=== PATIENT | male | born 1965 | race Caucasian/White ===

== ENCOUNTER 2024-12-06 21:01 | Inpatient (IN) | payer BC ==
--- NOTE | 2024-12-06 21:49 | ED ---
SOB HPI - General Chief Complaint: Shortness of Breath Stated Complaint: CANDELARIA Time Seen by Provider: 12/06/24 21:44 Source: patient, RN notes reviewed, old records reviewed Mode of arrival: ambulatory Limitations: no limitations - History of Present Illness Initial Comments: This is a 58-year-old male to ER for evaluation mainly complaining of shortness of breath severe shortness of breath with low oxygen's at home elevated heart rate in the 120s+ oxygen in the low to mid 80s. Patient does have history of smoking no formal breathing treatments done but he does also have COPD. No significant heart history with bilateral lower extremity edema also noticed today. Patient has not had any fever or recent illness MD Complaint: shortness of breath, chest pain -: hour(s) Severity: severe Severity scale (1-10): 10 Consistency: constant Improves With: nothing Worsens With: exertion Known History Of: COPD, congestive heart failure Associated Symptoms: chest pain, pain with inspiration Treatments Prior to Arrival: none - Related Data Home Medications Medication Instructions Recorded Confirmed Atorvastatin [Lipitor] 10 mg PO DAILY 12/07/24 12/07/24 Fluticasone/Umeclidin/Vilanter 1 puff INHALATION RT-DAILY 12/07/24 12/07/24 [Trelejess Ellipta 100-62.5-25] Naltrexone HCl 50 mg PO DIRECTED 12/07/24 12/07/24 Tirzepatide [Mounjaro] 7.5 mg SQ TU 12/07/24 12/07/24 hydroCHLOROthiazide [Hydrodiuril] 25 mg PO DAILY 12/07/24 12/07/24 lisinopriL 40 mg PO DAILY 12/07/24 12/07/24 metFORMIN HCL 1,000 mg PO BID 12/07/24 12/07/24 ALPRAZolam [Xanax] 1 mg PO TID PRN 12/08/24 12/08/24 Previous Rx's Medication Instructions Recorded Ipratropium-Albuterol Nebulize 3 ml INHALATION Q6HR PRN #90 ml 12/09/24 [Duoneb 0.5 mg-3 mg/3 ml Soln] Pantoprazole [Protonix] 40 mg PO AC-BID #30 tab 12/09/24 predniSONE See Taper PO DIRECTED #30 tab 12/09/24 Allergies Allergy/AdvReac Type Severity Reaction Status Date / Time No Known Allergies Allergy Verified 12/07/24 07:57 Review of Systems ROS Statement: Those systems with pertinent positive or pertinent negative responses have been documented in the HPI. ROS Other: All systems not noted in ROS Statement are negative. Past Medical History Past Medical History: COPD, Diabetes Mellitus, Hyperlipidemia History of Any Multi-Drug Resistant Organisms: None Reported Past Surgical History: No Surgical Hx Reported Past Psychological History: No Psychological Hx Reported Smoking Status: Current every day smoker Past Alcohol Use History: Heavy General Exam Limitations: no limitations General appearance: alert, in no apparent distress Head exam: Present: atraumatic, normocephalic, normal inspection Eye exam: Present: normal appearance, PERRL, EOMI. Absent: scleral icterus, conjunctival injection, periorbital swelling ENT exam: Present: normal exam, mucous membranes moist Neck exam: Present: normal inspection. Absent: tenderness, meningismus, lymphadenopathy Respiratory exam: Present: normal lung sounds bilaterally. Absent: respiratory distress, wheezes, rales, rhonchi, stridor Cardiovascular Exam: Present: normal rhythm, tachycardia, normal heart sounds. Absent: systolic murmur, diastolic murmur, rubs, gallop, clicks GI/Abdominal exam: Present: soft, normal bowel sounds. Absent: distended, tenderness, guarding, rebound, rigid Extremities exam: Present: normal inspection, full ROM, normal capillary refill. Absent: tenderness, pedal edema, joint swelling, calf tenderness Back exam: Present: normal inspection Neurological exam: Present: alert, oriented X3, CN II-XII intact Psychiatric exam: Present: normal affect, normal mood Skin exam: Present: warm, dry, intact, normal color. Absent: rash Course Vital Signs 12/06/24 12/06/24 12/06/24 21:02 22:01 22:27 Temperature 97.6 F Pulse Rate 129 H 117 H 120 H Respiratory 18 18 Rate Blood Pressure 123/69 108/63 O2 Sat by Pulse 93 L 96 Oximetry 12/06/24 12/06/24 12/07/24 22:37 23:44 00:35 Temperature 98.3 F 98.2 F Pulse Rate 120 H 122 H 115 H Respiratory 18 18 Rate Blood Pressure 117/60 115/75 O2 Sat by Pulse 92 L 95 Oximetry 07/16/25 07/16/25 07/16/25 02:00 03:26 03:35 Temperature Pulse Rate 116 H 117 H 118 H Respiratory 18 Rate Blood Pressure 126/87 O2 Sat by Pulse 94 L Oximetry - Reevaluation(s) Reevaluation #1: 12/06/24 22:15 Medical records reviewed Reevaluation #2: 12/07/24 02:33 Mild improvement after breathing treatment still hypoxic without room air Reevaluation #3: 12/07/24 02:33 Patient informed of results and questions answered Reevaluation #4: Was pt. sent in by a medical professional or institution ([facility] Leyva, CREDIT COLLECTIONS CLERK, urgent care, hospital, or shelter...) When possible be specific @ -no Did you speak to anyone other than the patient for history (EMS, parent, family, police, friend...)? What history was obtained from this source @ -no Did you review nursing and triage notes (agree or disagree)? Why? @ -agree Are old charts reviewed (outside hosp., previous admission, EMS record, old EKG, old radiological studies, urgent care reports/EKG's, shelter records)? Report findings @ -yes Differential Diagnosis (chest pain, altered mental status, abdominal pain women, abdominal pain men, vaginal bleeding, weakness, fever, dyspnea, syncope, headache, dizziness, GI bleed, back pain, seizure, CVA, palpatations, mental health, musculoskeletal)? @ -prior EKG interpreted by me (3pts min.). @ -yes X-rays interpreted by me (1pt min.). @ -yes negative for acute disease CT interpreted by me (1pt min.). @ -yes negative for acute disease U/S interpreted by me (1pt. min.). @ -no What testing was considered but not performed or refused? (CT, X-rays, U/S, labs )? Why? @ -none What meds were considered but not given or refused? Why? @ -none Did you discuss the management of the patient with other professionals (professionals i.e. [facility] Leyva, CREDIT COLLECTIONS CLERK, lab, RT, psych nurse, social services coordinator, hull line crew member, teacher, marketing and communications officer, case monitor)? Give summary @ -no Was smoking cessation discussed for >3mins.? @ -no Was critical care preformed (if so, how long)? @ -yes31 Were there social determinants of health that impacted care today? How? (Homelessness, low income, unemployed, alcoholism, drug addiction, transportation, low edu. Level, literacy, decrease access to med. care, long term, rehab)? @ -none Was there de-escalation of care discussed even if they declined (Discuss DNR or withdrawal of care, Hospice)? DNR status @ -no What co-morbidities impacted this encounter? (DM, HTN, Smoking, COPD, CAD, Cancer, CVA, ARF, Chemo, Hep., AIDS, mental health diagnosis, sleep apnea, morbid obesity)? @ -none Was patient admitted / discharged? Hospital course, mention meds given and route, prescriptions, significant lab abnormalities, going to OR and other pertinent info. @ - 58 male with severe COPD and hypoxia patient will be admitted for breathing treatments and steroid Admitted Undiagnosed new problem with uncertain prognosis? @ -no Drug Therapy requiring intensive monitoring for toxicity (Heparin, Nitro, Insulin, Cardizem)? @ -no Were any procedures done? @ -no Diagnosis/symptom? @ -COPD with hypoxia Acute, or Chronic, or Acute on Chronic? @ -Acute Uncomplicated (without systemic symptoms) or Complicated (systemic symptoms)? @ -Complicated Side effects of treatment? @ -no Exacerbation, Progression, or Severe Exacerbation? @ -exacerbation Poses a threat to life or bodily function? How? (Chest pain, USA, NM, pneumonia, PE, COPD, DKA, ARF, appy, cholecystitis, CVA, Diverticulitis, Homicidal, Suicidal, threat to staff... and all critical care pts) @ -yes respiratory failure Reevaluation #5: Differential Dyspnea: Coronary syndrome, arrhythmia, tamponade, asthma, COPD, pulmonary embolism, pneumonia, pneumothorax, pulmonary effusion, anaphylaxis, diabetic ketoacidosis, flailed chest, pulmonary contusion, diaphragmatic rupture, anemia, neuromuscular, this is not meant to be an all-inclusive list. Differential Chest Pain: Stable Angina, Unstable Angina, STEMI, NSTEMI Aortic Dissection, Pneumothorax, Musculoskeletal, Esophageal Spasm GERD, Cholecystitis, Pancreatitis, Zoster, this is not meant to be an all-inclusive list. - Consultations Consultation #1: Spoke with Dr. Melchor who agrees to admit this patient Medical Decision Making - Medical Decision Making 58 male with severe COPD and hypoxia patient will be admitted for breathing treatments and steroid - Lab Data Result diagrams: 12/08/24 05:53 12/08/24 05:53 Lab Results 12/06/24 12/06/24 12/06/24 Range/Units 21:52 21:52 21:52 WBC 10.88 H (4.50-10.00) 10*3/uL RBC 5.00 (4.40-5.60) 10*6/uL Hgb 17.6 H (13.0-17.0) g/dL Hct 49.8 (39.6-50.0) % MCV 99.6 H (80.0-97.0) fL MCH 35.2 H (27.0-32.0) pg MCHC 35.3 (32.0-37.0) g/dL Plt Count 202 (140-440) 10*3/uL MPV 10.7 (9.5-12.2) fL Immature Gran % (Auto) 0.4 % Neutrophils % 67.5 % Lymphocytes % 17.6 % Monocytes % 9.7 % Eosinophils % 3.8 % Basophils % 1.0 % Immature Gran # 0.04 (0.00-0.04) 10*3/uL Neutrophils # 7.36 (1.80-7.70) 10*3/uL Lymphocytes # 1.91 (0.90-5.00) 10*3/uL Monocytes # 1.05 H (0.20-1.00) 10*3/uL Eosinophils # 0.41 H (0.04-0.35) 10*3/uL Basophils # 0.11 H (0.00-0.10) 10*3/uL PT 12.6 H (10.0-12.5) sec INR 1.2 H (<1.2) APTT 23.1 (22.0-30.0) sec D-Dimer (<0.60) mg/L FEU Sodium 133 L (137-145) mmol/L Potassium 4.2 (3.5-5.1) mmol/L Chloride 94 L (98-107) mmol/L Carbon Dioxide 29 (22-30) mmol/L Anion Gap 10 mmol/L BUN 9 (9-20) mg/dL Creatinine 0.70 (0.66-1.25) mg/dL Est GFR (CKD-EPI)AfAm >90 (>60 ml/min/1.73 sqM) Est GFR (CKD-EPI)NonAf >90 (>60 ml/min/1.73 sqM) Glucose 140 H (74-99) mg/dL Calcium 10.9 H (8.4-10.2) mg/dL Magnesium 1.5 L (1.6-2.3) mg/dL Total Bilirubin 0.8 (0.2-1.3) mg/dL AST 62 H (17-59) U/L ALT 63 H (4-49) U/L Alkaline Phosphatase 72 (38-126) U/L Troponin I (0.000-0.034) ng/mL NT-Pro-B Natriuret Pep <20 pg/mL Total Protein 6.7 (6.3-8.2) g/dL Albumin 3.7 (3.5-5.0) g/dL 12/06/24 12/07/24 Range/Units 21:52 00:01 WBC (4.50-10.00) 10*3/uL RBC (4.40-5.60) 10*6/uL Hgb (13.0-17.0) g/dL Hct (39.6-50.0) % MCV (80.0-97.0) fL MCH (27.0-32.0) pg MCHC (32.0-37.0) g/dL Plt Count (140-440) 10*3/uL MPV (9.5-12.2) fL Immature Gran % (Auto) % Neutrophils % % Lymphocytes % % Monocytes % % Eosinophils % % Basophils % % Immature Gran # (0.00-0.04) 10*3/uL Neutrophils # (1.80-7.70) 10*3/uL Lymphocytes # (0.90-5.00) 10*3/uL Monocytes # (0.20-1.00) 10*3/uL Eosinophils # (0.04-0.35) 10*3/uL Basophils # (0.00-0.10) 10*3/uL PT (10.0-12.5) sec INR (<1.2) APTT (22.0-30.0) sec D-Dimer 0.30 (<0.60) mg/L FEU Sodium (137-145) mmol/L Potassium (3.5-5.1) mmol/L Chloride (98-107) mmol/L Carbon Dioxide (22-30) mmol/L Anion Gap mmol/L BUN (9-20) mg/dL Creatinine (0.66-1.25) mg/dL Est GFR (CKD-EPI)AfAm (>60 ml/min/1.73 sqM) Est GFR (CKD-EPI)NonAf (>60 ml/min/1.73 sqM) Glucose (74-99) mg/dL Calcium (8.4-10.2) mg/dL Magnesium (1.6-2.3) mg/dL Total Bilirubin (0.2-1.3) mg/dL AST (17-59) U/L ALT (4-49) U/L Alkaline Phosphatase (38-126) U/L Troponin I <0.012 (0.000-0.034) ng/mL NT-Pro-B Natriuret Pep pg/mL Total Protein (6.3-8.2) g/dL Albumin (3.5-5.0) g/dL - EKG Data -: EKG Interpreted by Me (EKG sinus tachycardia 127 [place] 160 QRS 88 QTc 395) - Radiology Data Radiology results: report reviewed (Chest x-ray CTA chest negative for acute d isease), image reviewed Critical Care Time Critical Care Time: Yes Total Critical Care Time: 31 Disposition Clinical Impression: Acute exacerbation of chronic obstructive pulmonary disease, Hypoxia Disposition: ADMITTED IP TO THIS HOSP Condition: Fair Is patient prescribed a controlled substance at d/c from ED?: No Time of Disposition: 01:00
[2024-12-06] MEDS: methylPREDNISolone SOD SUCCI 125 MG/2 ML VIAL IV STA (21:58)
[2024-12-06] MEDS: SODIUM CHLORIDE 0.9% 1,000 ML IV SCH (22:00)
[2024-12-06 22:03] LABS: Basophils # (A) 0.11 10*3/uL (0.00-0.10); Basophils % (A) 1.0 %; Eosinophils # (A) 0.41 10*3/uL (0.04-0.35); Eosinophils % (A) 3.8 %; HCT 49.8 % (39.6-50.0); HGB 17.6 g/dL (13.0-17.0); Lymphocytes # (A) 1.91 10*3/uL (0.90-5.00); Lymphocytes % (A) 17.6 %; MCH 35.2 pg (27.0-32.0); MCHC 35.3 g/dL (32.0-37.0); MCV 99.6 fL (80.0-97.0); Monocytes # (A) 1.05 10*3/uL (0.20-1.00); Monocytes % (A) 9.7 %; Neutrophils # (A) 7.36 10*3/uL (1.80-7.70); Neutrophils % (A) 67.5 %; Platelet Count 202 10*3/uL (140-440); RBC 5.00 10*6/uL (4.40-5.60); RDW 13.2 % (11.5-14.5); WBC 10.88 10*3/uL (4.50-10.00)
[2024-12-06 22:16] LABS: ALT 63 U/L (4-49); AST 62 U/L (17-59); African American GFR (CKD) >90 (>60 ml/min/1.73 sqM); Albumin 3.7 g/dL (3.5-5.0); Alkaline Phosphatase 72 U/L (38-126); Anion Gap 10 mmol/L; Blood Urea Nitrogen 9 mg/dL (9-20); Calcium 10.9 mg/dL (8.4-10.2); Carbon Dioxide 29 mmol/L (22-30); Chloride 94 mmol/L (98-107); Glucose 140 mg/dL (74-99); INR 1.2 (<1.2); Magnesium 1.5 mg/dL (1.6-2.3); Non-African American GFR(CKD) >90 (>60 ml/min/1.73 sqM); Partial Thromboplastin Time 23.1 sec (22.0-30.0); Potassium 4.2 mmol/L (3.5-5.1); Prothrombin Time 12.6 sec (10.0-12.5); Sodium 133 mmol/L (137-145); Total Protein 6.7 g/dL (6.3-8.2)
[2024-12-06] MEDS: IPRATROPIUM-ALBUTEROL 3 ML NEB INHALATION STA (22:24)
[2024-12-06 22:25] LABS: NT-Pro-B-Type Natriuretic Pept <20 pg/mL
[2024-12-06] MEDS: ONDANSETRON 4 MG/2 ML VIAL IVP STA (23:07)
--- NOTE | 2024-12-06 23:43 | XR ---
EXAM: XR Chest, 2 Views CLINICAL HISTORY: ITS.REASON XR Reason: difficulty breathing TECHNIQUE: Frontal and lateral views of the chest. COMPARISON: No relevant prior studies available. FINDINGS: Lungs: No consolidation. No overt edema. Pleural space: No pleural effusion. No pneumothorax. Heart: Unremarkable. No cardiomegaly. Bones/joints: Unremarkable. No fracture or malalignment. IMPRESSION: No acute cardiopulmonary abnormality.
[2024-12-07] MEDS: MAGNESIUM SULFATE-D5W PMX 1 GM in DEXTROSE/WATER 1 100ML.BAG IVPB SCH (00:37)
[2024-12-07] MEDS: MAGNESIUM OXIDE 400 MG TAB PO STA (00:40)
[2024-12-07] MEDS: MAGNESIUM OXIDE 400 MG TAB PO SCH (00:41)
--- NOTE | 2024-12-07 01:44 | CT ---
EXAM: CT Angiography Chest With Intravenous Contrast CLINICAL HISTORY: ITS.REASON CT Reason: pe TECHNIQUE: Axial computed tomographic angiography images of the chest with intravenous contrast. CTDI is 39.5 mGy and DLP is 544.6 mGy-cm. This CT exam was performed using one or more of the following dose reduction techniques: automated exposure control, adjustment of the mA and/or kV according to patient size, and/or use of iterative reconstruction technique. MIP reconstructed images were created and reviewed. COMPARISON: No relevant prior studies available. FINDINGS: Pulmonary arteries: Evaluation is limited due to suboptimal contrast bolus timing. Consider repeat exam, if clinically indicated. Aorta: No acute findings. No thoracic aortic aneurysm. Lungs: Unremarkable. No mass. No consolidation. Pleural space: Unremarkable. No significant effusion. No pneumothorax. Heart: Unremarkable. No cardiomegaly. No significant pericardial effusion. No evidence of RV dysfunction. Mediastinum: Moderate esophageal hiatal hernia. Bones/joints: No acute fracture. No dislocation. Soft tissues: Unremarkable. Lymph nodes: Unremarkable. No enlarged lymph nodes. Gallbladder and bile ducts: Cholelithiasis. IMPRESSION: Evaluation is limited due to suboptimal contrast bolus timing. Consider repeat exam, if clinically indicated. Impression.
[2024-12-07] MEDS ORDERED: MORPHINE SULFATE 4 MG/ML SYRINGE IV PRN (02:30)
[2024-12-07] MEDS ORDERED: NALOXONE 0.4 MG/ML 1 ML VIAL IV PRN (02:30)
[2024-12-07] MEDS: SODIUM CHLORIDE 0.9% 1,000 ML IV SCH (02:39)
[2024-12-07] MEDS: IPRATROPIUM-ALBUTEROL 3 ML NEB INHALATION STA (03:25)
--- NOTE | 2024-12-07 05:26 | P.CNPUL ---
History of Present Illness Consult date: 12/07/24 Requesting physician: David Bell Reason for consult: COPD Chief complaint: Shortness of breath History of present illness: Patient is a 58-year-old male with past medical history significant for diabetes, hypertension, hyperlipidemia, COPD, current ongoing tobacco day smoker, and heavy alcohol use. Presented emergency department late last night with severe shortness of breath, hypoxic on room air with SpO2 in the mid 80s, and tachycardic. Chest CT angiogram was nondiagnostic for pulmonary embolism due to poor bolus contrast timing. No acute parenchymal disease noted. Hyperinf lation consistent with COPD. CBC with a WBC count of 10.9, hemoglobin 17.6, platelets 202. CMP unremarkable, electrolytes WDL, creatinine 0.7, glucose 140. LFTs unremarkable. Troponin less than 0.012. NT proBNP less than 20. D-dimer 0.3, and there is no need to repeat chest CTA. Patient was given multiple DuoNeb treatments in the ED and loaded with IV Solu-Medrol. Currently, being evaluated in the emergency department. He is on 2 L/min nasal cannula. Does not appear to be any respiratory distress. States his shortness of breath started yesterday. Endorses coughing, but not significantly worse than normal. No sputum production. No hemoptysis. No sick contacts. No fevers or chills. Denies nausea, vomiting, diarrhea. No recent travel. He does smoke 2 packs/day. He also used to drink heavily, 1/5/day since but stopped approximately 1 month ago. He has history of COPD. Previously, followed with an out-of-town lead consultant. Uses a Trelegy inhaler. No chest pain, heart palpitations, lightheadedness, syncopal events, lower extremity edema. Normal saline infusing at 75 mL/h. Most recent vital signs temperature 98.2 F, heart rate 115 bpm, blood pressure 115/75 mmHg, nontachypneic, SpO2 recorded at 95% on 2 L/min nasal cannula. Review of Systems REVIEW OF SYSTEMS: CONSTITUTIONAL: Denies any recent significant weight loss or weight gain. EYES: Denies change in vision. EARS, NOSE, MOUTH, THROAT: Denies headaches, denies sore throat. CARDIOVASCULAR: Denies chest pain, palpitations or syncopal episodes. RESPIRATORY: See HPI GASTROINTESTINAL: Denies change in appetite, abdominal pain, nausea and vomiting, or diarrhea GENITOURINARY: Denies hematuria, denies infections. MUSKULOSKELETAL: Denies pain, denies swelling. INTEGUMENTARY: Denies rash, denies eczema. NEUROLOGICAL: Denies recent memory loss, no recent seizure activity. PSYCHIATRIC: Denies anxiety, denies depression. HEMATOLOGIC/LYMPHATIC: Denies anemia, denies enlarged lymph node Past Medical History Past Medical History: COPD, Diabetes Mellitus, Hyperlipidemia History of Any Multi-Drug Resistant Organisms: None Reported Past Surgical History: No Surgical Hx Reported Past Psychological History: No Psychological Hx Reported Smoking Status: Current every day smoker Past Alcohol Use History: Heavy Medications and Allergies Allergies Allergy/AdvReac Type Severity Reaction Status Date / Time No Known Allergies Allergy Verified 12/07/24 07:57 Physical Exam Vitals: Vital Signs Temp Pulse Resp BP Pulse Ox 12/07/24 03:35 118 H 12/07/24 03:26 117 H 12/07/24 02:00 116 H 18 126/87 94 L 12/07/24 00:35 98.2 F 115 H 18 115/75 95 12/06/24 23:44 98.3 F 122 H 18 117/60 92 L 12/06/24 22:37 120 H 12/06/24 22:27 120 H 12/06/24 22:01 117 H 18 108/63 96 12/06/24 21:02 97.6 F 129 H 18 123/69 93 L Intake and Output 12/06/24 12/06/24 12/07/24 14:59 22:59 06:59 Other: Weight 113.398 kg GENERAL EXAM: Alert, 58-year-old obese male, sitting at the edge of the bed, comfortable in no apparent distress. HEAD: Normocephalic and atraumatic EYES: Normal reaction of pupils, equal size. NOSE: Clear with pink turbinates. THROAT: No erythema or exudates. NECK: No masses, no JVD. CHEST: No chest wall deformity. LUNGS: Equal air entry with no crackles, wheeze, rhonchi or dullness. On 2 L/min nasal cannula. No conversational dyspnea or accessory muscle use.. CVS: S1 and S2 normal with no audible murmur, regular rhythm. No extra heart sounds. Tachycardic. ABDOMEN: No hepatosplenomegaly, active bowel sounds, no guarding or rigidity. SPINE: No scoliosis or deformity SKIN: No rashes CENTRAL NERVOUS SYSTEM: No focal deficits, tone is normal in all 4 extremities. EXTREMITIES: There is no peripheral edema, clubbing, or cyanosis. Peripheral pulses are intact. Results - Laboratory Findings CBC and BMP: 12/06/24 21:52 12/06/24 21:52 PT/INR, D-dimer PT 12.6 sec (10.0-12.5) H 12/06/24 21:52 INR 1.2 (<1.2) H 12/06/24 21:52 D-Dimer 0.30 mg/L FEU (<0.60) 12/07/24 00:01 Abnormal lab findings: Abnormal Labs 12/06/24 12/06/24 12/06/24 21:52 21:52 21:52 WBC 10.88 H Hgb 17.6 H MCV 99.6 H MCH 35.2 H Monocytes # 1.05 H Eosinophils # 0.41 H Basophils # 0.11 H PT 12.6 H INR 1.2 H Sodium 133 L Chloride 94 L Glucose 140 H Calcium 10.9 H Magnesium 1.5 L AST 62 H ALT 63 H - Diagnostic Findings Chest x-ray: image reviewed Assessment and Plan Assessment: Acute COPD exacerbation Acute hypoxemic respiratory failure, on 2 L/min nasal cannula, secondary to above Sinus tachycardia Hypertension History of hyperlipidemia Diabetes mellitus, on Mounjaro Obesity, with a BMI of 32.1 kg/m Current ongoing tobacco dependence, 2 pack/day smoker for over 40 year History of alcohol abuse, 1/5/day of liquor, stopped drinking approximately 1 month ago Plan: Medications, labs, imaging reviewed Chest CT angiogram nondiagnostic for pulmonary embolism D-dimer 0.3, no need to repeat study No acute parenchymal process noted. Continue supplemental oxygen to maintain oxygen saturation 92% or greater Continue DuoNebs Continue IV Solu-Medrol 60 mg every 6 hours Add Symbicort inhaler Anticipate 24-48-hour hospitalization I have personally seen and examined the patient, performed the documentation and the assessment and plan as written. Number of minutes spent on the visit:20 This is a joint evaluation that was done along with the nurse practitioner. This evaluation was done and 35 minutes. Is a 58-year-old male patient, a chronic smoker who smokes up to 2 pack of cigarettes a day. The patient also has history of alcoholism and he quit drinking alcohol approximately a month ago. The patient lives in [facility]. He has seen a lead consultant in the past out of [facility]. He has not had any regular follow-up. He has been using trilogy Ellipta 100 mcg 1 puff a day. Does not have a nebulizer. Does not have oxygen. Has not have any other maintenance inhalers. Denies having any frequent respiratory tract infections or pneumonias. He is diabetic and his blood sugars has been under adequate control with a combination of metformin and the patient is also on Mounjaro. He has hyperlipidemia in addition. No history of any coronary artery disease. There was a cause at 10.8 where he was 17.6. D-dimer is at 0.3. Electrolytes are all normal. Normal renal function. proBNP level is not elevated and troponins are also negative. The patient had a CTA of the chest at time of admission that showed no evidence of any pulm embolism. In addition, there is no other significant abnormalities. There is a moderate sized esophageal hiatal hernia. No cardiomegaly. No airspace disease. No consolidation. The patient is currently on DuoNeb nebulizers [id number], Symbicort as maintenance and IV Solu-Medrol. He is also on normal saline at rate of 75 cc an hour. He is maintained on oxygen at 3 L with a +92%. Less bronchospastic and wheezy. Will continue to follow. Time with Patient: Greater than 30
[2024-12-07] MEDS: methylPREDNISolone SOD SUCCI 125 MG/2 ML VIAL IV SCH (05:31)
[2024-12-07] MEDS: SYMBICORT 160-4.5 MCG INHALER INHALATION SCH (09:32)
[2024-12-07] MEDS: IPRATROPIUM-ALBUTEROL 3 ML NEB INHALATION SCH (09:32)
[2024-12-07] MEDS: ALBUTEROL NEBULIZED 2.5 MG/3 ML INHALATION SCH (09:32)
[2024-12-07] MEDS: ONDANSETRON 4 MG/2 ML VIAL IVP PRN (10:19)
--- NOTE | 2024-12-07 16:51 | HP ---
HISTORY AND PHYSICAL HISTORY OF PRESENT ILLNESS: A 58-year-old white male came into the hospital with atypical chest pain, which he has moderate esophageal hernia on the CAT scan consistent with cholelithiasis. There is no pneumonia, came with like COPD exacerbation. Pulmonary saw him. EKG shows sinus tachycardia. He has hypoxemia. Current vital signs are 92% on 3 L, pulse 110. He came in with shortness of breath, severe low oxygen at home, 120+ heart rate. He has bilateral lower extremity edema that is negative. No fever or chills. ALLERGIES: Negative. REVIEW OF SYSTEMS: A 14-point review of systems otherwise negative. PAST MEDICAL HISTORY: COPD, diabetes, dyslipidemia. Current everyday smoker. PHYSICAL EXAMINATION: CARDIOVASCULAR: S1, S2. GI: Soft. EXTREMITIES: Minimal edema. BACK: Skin normal on inspection. NEUROLOGIC: Cranial nerves intact. PSYCH: Fair mood and affect. HEENT: Pupils equal, round, and reactive. VITAL SIGNS: Temperature 98.3, pulse 115 to 120, blood pressure 115 to 117/60 to 75, and O2 94% to 93%. IMPRESSION AND PLAN: The patient has hypoxic respiratory failure, possible tracheobronchitis, moderately elevated leukocytosis and secondary polycythemia treated with antibiotics, updraft steroids. Prognosis guarded. Pulmonary consult. MMODL / IJN: [id number] /
[2024-12-08] MEDS: MONTELUKAST 10 MG TAB PO STA (02:07)
[2024-12-08] MEDS: PANTOPRAZOLE 40 MG TABLET PO SCH (06:04)
[2024-12-08 08:04] LABS: Basophils # (A) 0.02 X 10*3/uL (0.00-0.10); Basophils % (A) 0.1 %; Eosinophils # (A) 0 X 10*3/uL (0.04-0.35); Eosinophils % (A) 0 %; HCT 48.3 % (39.6-50.0); HGB 16.4 g/dL (13.0-17.0); Immature Grans, Automated 0.80 %; Lymphocytes # (A) 0.59 X 10*3/uL (0.90-5.00); Lymphocytes % (A) 4.1 %; MCH 35.0 pg (27.0-32.0); MCHC 34.0 g/dL (32.0-37.0); MCV 103.2 FL (80.0-97.0); Monocytes # (A) 0.37 X 10*3/uL (0.20-1.00); Monocytes % (A) 2.6 %; NRBC Per 100 WBC 0 X 10*3/uL (0.00-0.01); Neutrophils # (A) 13.28 X 10*3/uL (1.80-7.70); Neutrophils % (A) 92.4 %; Platelet Count 172 X 10*3/uL (140-440); RBC 4.68 X 10*6/uL (4.40-5.60); RDW 13.1 % (11.5-14.5); WBC 14.37 X 10*3/uL (4.50-10.00)
[2024-12-08] MEDS: LORATADINE 10 MG TAB PO SCH (08:37)
[2024-12-08 09:20] LABS: ALT 43 U/L (10-49); AST 21 U/L (14-35); Albumin 3.6 g/dL (3.8-4.9); Albumin/Globulin Ratio 1.44 Ratio (1.60-3.17); Alkaline Phosphatase 66 U/L (41-126); Anion Gap 9.40 mmol/L (4.00-12.00); BUN/Creat Ratio 16.71 Ratio (12.00-20.00); Blood Urea Nitrogen 11.7 mg/dL (9.0-27.0); Calcium 9.6 mg/dL (8.7-10.3); Carbon Dioxide 29.6 mmol/L (21.6-31.8); Chloride 96 mmol/L (96-109); Globulin 2.5 g/dL (1.6-3.3); Glucose 277 mg/dL (70-110); Magnesium 1.9 mg/dL (1.5-2.4); Potassium 5.1 mmol/L (3.5-5.5); Sodium 135 mmol/L (135-145); Total Protein 6.1 g/dL (6.2-8.2)
[2024-12-08] MEDS: hydroCHLOROthiazide 25 MG TAB PO SCH (10:56)
[2024-12-08] MEDS ORDERED: DEXTROSE 50% SYRINGE 50 ML IVP PRN ×2 (11:24)
--- NOTE | 2024-12-08 11:30 | P.PN ---
Subjective Progress Note Date: 12/08/24 Hospital Course: A 58-year-old male with past medical history of type II DM not on insulin, HTN, HLD, COPD not on home oxygen, current smoker, history of heavy alcohol use quit 10/2024 who presented to the ER on 12/06 for progressively worsening shortness of breath. He was found to be hypoxic on room air in mid 80s, tachycardic in 100s, afebrile. CTA chest was done and was nondiagnostic for PE, no acute parenchymal pathology noted, COPD changes. His lab work was significant for mild leukocy tosis without left shift, hemoglobin 17.6, platelet count normal, D-dimer 0.3, sodium 133, potassium 4.2, creatinine normal, calcium elevated 10.9, magnesium low 1.5, AST and ALT elevated 62 and 63 accordingly, troponin negative, BNP negative. Patient was admitted for management of COPD exacerbation with pulmonology on consult. He was initially under care of another attending physician, patient requested another attending, sound physicians assumed care on 12/08/2024. 12/08: Patient was seen examined at bedside, no acute events overnight, he was on 3 L of oxygen satting at 9795%: Mildly tachycardic in the 90s, afebrile. Blood pressure 143/84. Patient states that his shortness of breath is significantly improved, he slept in the recliner, he denies any chest pain, abdominal pain, dysuria. Discussed with RN and education analyst Dr. Zepeda who was at bedside, plan to wean off supplemental oxygen, continue IV steroids in the meantime, anticipate discharge in the next 24 hours. Pertinent positives and negatives as discussed above, a complete review of systems was performed and all other systems are negative. Vitals Signs Reviewed. General: Nontoxic, no distress, appears at stated age Derm: Warm, dry Head: Atraumatic, normocephalic, symmetric Eyes: EOMI, no lid lag, anicteric sclera Mouth: No lip lesion, mucus membranes moist Cardiovascular: S1S2 reg, no murmur Lungs: Diminished air entry bilaterally, end expiratory wheezes present no accessory muscle use Abdominal: Soft, nontender to palpation, no guarding, no appreciable organomegaly Ext: No gross muscle atrophy, no edema, no contractures Neuro: CN II-XI grossly intact, no focal neuro deficits Psych: Alert, oriented, appropriate affect Assessment and Plan: Acute hypoxic respiratory failure secondary to COPD exacerbation Sinus tachycardia in the settings of above Leukocytosis, likely reactive in the setting of steroid use -Pulmonology following, appreciate recommendations -Wean off oxygen as tolerated -Continue Solu-Medrol 60 mg IV every 6 hours, DuoNebs scheduled 4 times daily, Symbicort 160/4.5 twice daily -Patient to follow-up with pulmonology as outpatient - Encouraged smoking cessation, patient feels ready, declines nicotine patch at this time Hypertension: Continue home hydrochlorothiazide 25 daily, lisinopril 40 daily Hyperlipidemia: continue home Lipitor 10 mg daily Type II DM not on insulin: Continue with SSI, Accu-Cheks, hypoglycemia precautions Obesity BMI 32 Recommend structured weight loss program, follow-up with PCP Tobacco use disorder: Smoking cessation as above Resolved:-Hyponatremia, hypercalcemia, transaminitis DVT ppx: Lovenox Code status: Full code Anticipated discharge place: Home Anticipated discharge time: 12/09 Objective - Vital Signs Vital signs: Vital Signs Temp 99.0 F 12/08/24 07:20 Pulse 104 H 12/08/24 08:56 Resp 16 12/08/24 07:20 BP 143/84 12/08/24 07:20 Pulse Ox 95 12/08/24 07:20 FiO2 Intake & Output 12/07/24 12/08/24 12/08/24 18:59 06:59 18:59 Other: Voiding Method Toilet # Voids 4 3 - Labs CBC & Chem 7: 12/08/24 05:53 12/08/24 05:53 Labs: Abnormal Lab Results - Last 24 Hours (Table) 12/08/24 12/08/24 Range/Units 05:53 05:53 WBC 14.37 H (4.50-10.00) X 10*3/uL MCV 103.2 H (80.0-97.0) FL MCH 35.0 H (27.0-32.0) pg Immature Gran # 0.11 H (0.00-0.04) X 10*3/uL Neutrophils # 13.28 H (1.80-7.70) X 10*3/uL Lymphocytes # 0.59 L (0.90-5.00) X 10*3/uL Eosinophils # 0 L (0.04-0.35) X 10*3/uL Glucose 277 H (70-110) mg/dL Total Protein 6.1 L (6.2-8.2) g/dL Albumin 3.6 L (3.8-4.9) g/dL Albumin/Globulin Ratio 1.44 L (1.60-3.17) Ratio
[2024-12-08 11:39] LABS: Glucose,Whole Blood 287 mg/dL (70-110)
[2024-12-08] MEDS: INSULIN LISPRO (HumaLOG) 100 UNIT/ML 10 mL VL SQ SCH (12:19)
[2024-12-08] MEDS: ENOXAPARIN 40 MG/0.4 ML SYRINGE SQ SCH (12:19)
[2024-12-08 16:19] LABS: Glucose,Whole Blood 331 mg/dL (70-110)
[2024-12-08 20:27] LABS: Glucose,Whole Blood 258 mg/dL (70-110)
--- NOTE | 2024-12-08 20:46 | P.PN ---
Subjective Progress Note Date: 12/08/24 Patient is a 58-year-old male with past medical history significant for diabete s, hypertension, hyperlipidemia, COPD, current ongoing tobacco day smoker, and heavy alcohol use. Presented emergency department late last night with severe shortness of breath, hypoxic on room air with SpO2 in the mid 80s, and tachycardic. Chest CT angiogram was nondiagnostic for pulmonary embolism due to poor bolus contrast timing. No acute parenchymal disease noted. Hyperinflation consistent with COPD. CBC with a WBC count of 10.9, hemoglobin 17.6, platelets 202. CMP unremarkable, electrolytes WDL, creatinine 0.7, glucose 140. LFTs unremarkable. Troponin less than 0.012. NT proBNP less than 20. D-dimer 0.3, and there is no need to repeat chest CTA. Patient was given multiple DuoNeb treatments in the ED and loaded with IV Solu-Medrol. Currently, being evaluated in the emergency department. He is on 2 L/min nasal cannula. Does not appear to be any respiratory distress. States his shortness of breath started yesterday. Endorses coughing, but not significantly worse than normal. No sputum production. No hemoptysis. No sick contacts. No fevers or chills. Denies nausea, vomiting, diarrhea. No recent travel. He does smoke 2 packs/day. He also used to drink heavily, 1/5/day since but stopped approximately 1 month ago. He has history of COPD. Previously, followed with an out-of-town detail manager. Uses a Trelegy inhaler. No chest pain, heart palpitations, lightheadedness, syncopal events, lower extremity edema. Normal saline infusing at 75 mL/h. Most recent vital signs temperature 98.2 F, heart rate 115 bpm, blood pressure 115/75 mmHg, nontachypneic, SpO2 recorded at 95% on 2 L/min nasal cannula. On 12/08/2024, the patient is being seen for a follow-up. The patient is currently being treated for an acute prescription exacerbation. Feels better c ompared to yesterday. Less bronchospastic and wheezy. Oxygenation is stable and the patient remains on 3 Suboxone by nasal cannula with a pulse ox of 96%. No chest pain. No pleurisy. No hemoptysis. White cell count is 14 with a hemoglobin 16.4 with a platelet count of 172. BUN 11 with a creatinine of 0.7 and sodium is 135. Remains on DuoNeb nebulizers [id number]. Remains on Symbicort and IV Solu-Medrol 60 mg every 6 hours. He is on Lovenox for DVT prophylaxis. Rest of medications were reviewed. No other changes. Clinically improving. Objective - Vital Signs Vital signs: Vital Signs Temp 99.0 F 12/08/24 07:20 Pulse 104 H 12/08/24 08:56 Resp 16 12/08/24 07:20 BP 143/84 12/08/24 07:20 Pulse Ox 95 12/08/24 07:20 FiO2 Intake & Output 12/07/24 12/08/24 12/08/24 18:59 06:59 18:59 Other: Voiding Method Toilet # Voids 4 3 - Exam GENERAL EXAM: Alert, 58-year-old obese male, sitting at the edge of the bed, comfortable in no apparent distress. HEAD: Normocephalic and atraumatic EYES: Normal reaction of pupils, equal size. NOSE: Clear with pink turbinates. THROAT: No erythema or exudates. NECK: No masses, no JVD. CHEST: No chest wall deformity. LUNGS: Equal air entry with no crackles, wheeze, rhonchi or dullness. On 2 L/min nasal cannula. No conversational dyspnea or accessory muscle use.. CVS: S1 and S2 normal with no audible murmur, regular rhythm. No extra heart sounds. Tachycardic. ABDOMEN: No hepatosplenomegaly, active bowel sounds, no guarding or rigidity. SPINE: No scoliosis or deformity SKIN: No rashes CENTRAL NERVOUS SYSTEM: No focal deficits, tone is normal in all 4 extremities. EXTREMITIES: There is no peripheral edema, clubbing, or cyanosis. Peripheral pulses are intact. - Labs CBC & Chem 7: 12/08/24 05:53 12/08/24 05:53 Labs: Abnormal Lab Results - Last 24 Hours (Table) 12/08/24 12/08/24 Range/Units 05:53 05:53 WBC 14.37 H (4.50-10.00) X 10*3/uL MCV 103.2 H (80.0-97.0) FL MCH 35.0 H (27.0-32.0) pg Immature Gran # 0.11 H (0.00-0.04) X 10*3/uL Neutrophils # 13.28 H (1.80-7.70) X 10*3/uL Lymphocytes # 0.59 L (0.90-5.00) X 10*3/uL Eosinophils # 0 L (0.04-0.35) X 10*3/uL Glucose 277 H (70-110) mg/dL Total Protein 6.1 L (6.2-8.2) g/dL Albumin 3.6 L (3.8-4.9) g/dL Albumin/Globulin Ratio 1.44 L (1.60-3.17) Ratio Assessment and Plan Assessment: Acute COPD exacerbation, clinically improving less short of breath compared to yesterday Acute hypoxemic respiratory failure, on 3 L/min nasal cannula, secondary to above Sinus tachycardia, improving Hypertension History of hyperlipidemia Diabetes mellitus, on Mounjaro Obesity, with a BMI of 32.1 kg/m Current ongoing tobacco dependence, 2 pack/day smoker for over 40 year History of alcohol abuse, 1/5/day of liquor, stopped drinking approximately 1 month ago Plan: Titrate oxygen flow to maintain saturation above 90%, currently on 3 l Clinically stable and improving Chest CT angiogram nondiagnostic for pulmonary embolism D-dimer 0.3 Continue supplemental oxygen to maintain oxygen saturation 92% or greater Continue DuoNebs Continue IV Solu-Medrol 60 mg every 6 hours Continue Symbicort inhaler Anticipate 24-48-hour hospitalization Normal saline rate of 75 cc an hour Will follow
[2024-12-09 06:15] LABS: Glucose,Whole Blood 228 mg/dL (70-110)
[2024-12-09 07:34] VITALS: BP 135/78; RESP 18; TEMP 98.4
[2024-12-09 08:19] VITALS: PULSE 92
[2024-12-09] MEDS: ATORVASTATIN 10 MG TAB PO SCH (08:44)
--- NOTE | 2024-12-09 10:05 | P.DS ---
Providers Date of admission: 12/07/24 02:30 Attending physician: Pa Figueredo Consults: 12/07/24 02:30 Consult Physician Routine Consulting Provider: Patricia Zepeda Consult Reason/Comments: copdhypoxia Do you want consulting provider notified?: Yes Primary care physician: Physician Nonstaff Hospital Course: Discharge Diagnosis: Acute hypoxic respiratory failure secondary to COPD exacerbation Sinus tachycardia in the settings of above Leukocytosis, likely reactive in the setting of steroid use HTN HLD Type II DM not on insulin Obesity BMI 32 Tobacco use disorder Resolved: Hyponatremia, hypocalcemia, transaminitis Hospital course: A 58-year-old male with past medical history of type II DM not on insulin, HTN, HLD, COPD not on home oxygen, current smoker, history of heavy alcohol use quit 10/2024 who presented to the ER on 12/06 for progressively worsening shortness of breath. He was found to be hypoxic on room air in mid 80s, tachycardic in 100s, afebrile. CTA chest was done and was nondiagnostic for PE, no acute parenchymal pathology noted, COPD changes. His lab work was significant for mild leukocytosis without left shift, hemoglobin 17.6, platelet count normal, D-dimer 0.3, sodium 133, potassium 4.2, creatinine normal, calcium elevated 10.9, magnesium low 1.5, AST and ALT elevated 62 and 63 accordingly, troponin negative, BNP negative. Patient was admitted for management of COPD exacerbation with pulmonology on consult. He was initially under care of another attending physician, patient requested another attending, sound physicians assumed care on 12/08/2024. 12/09: Patient seen and examined at bedside, no acute events overnight, patient passed walking pulse ox test, no home oxygen is indicated. He is satting well on room air, no active complaints, he is clear on auscultation, discussed with case management, patient needs nebulizer at home, prescription sent. Patient to follow-up with primary care physician, bulb sorter, complete steroid taper at discharge. Patient quit smoking right before this admission and is interested and motivated to proceed with smoking cessation moving forward. Patient seen and examined at bedside. Vital signs reviewed and stable. General: Nontoxic, no distress, appears at stated age Derm: Warm, dry Head: Atraumatic, normocephalic, symmetric Eyes: EOMI, no lid lag, anicteric sclera Mouth: No lip lesion, mucus membranes moist Cardiovascular: S1S2 reg, no murmur Lungs: CTA bilateral, no rhonchi, no rales, no accessory muscle use Abdominal: Soft, nontender to palpation, no guarding, no appreciable organomegaly Ext: No gross muscle atrophy, no edema, no contractures Neuro: CN II-XI grossly intact, no focal neuro deficits Psych: Alert, oriented, appropriate affect A total of 40 minutes of time were spent preparing this complex discharge summary. Patient was discharged on 12/09/2024. Patient Condition at Discharge: Fair Plan - Discharge Summary New Discharge Prescriptions: New Ipratropium-Albuterol Nebulize [Duoneb 0.5 mg-3 mg/3 ml Soln] 3 ml INHALATION Q6HR PRN #90 ml PRN Reason: shortness of breath predniSONE See Taper PO DIRECTED #30 tab Pantoprazole [Protonix] 40 mg PO AC-BID #30 tab Continue hydroCHLOROthiazide [Hydrodiuril] 25 mg PO DAILY Naltrexone HCl 50 mg PO DIRECTED metFORMIN HCL 1,000 mg PO BID Tirzepatide [Mounjaro] 7.5 mg SQ TU lisinopriL 40 mg PO DAILY Atorvastatin [Lipitor] 10 mg PO DAILY Fluticasone/Umeclidin/Vilanter [Trelegy Ellipta 100-62.5-25] 1 puff INHALATION RT-DAILY ALPRAZolam [Xanax] 1 mg PO TID PRN PRN Reason: Anxiety Discharge Medication List Atorvastatin [Lipitor] 10 mg PO DAILY 12/07/24 [History] Fluticasone/Umeclidin/Vilanter [Trelegy Ellipta 100-62.5-25] 1 puff INHALATION RT-DAILY 12/07/24 [History] Naltrexone HCl 50 mg PO DIRECTED 12/07/24 [History] Tirzepatide [Mounjaro] 7.5 mg SQ TU 12/07/24 [History] hydroCHLOROthiazide [Hydrodiuril] 25 mg PO DAILY 12/07/24 [History] lisinopriL 40 mg PO DAILY 12/07/24 [History] metFORMIN HCL 1,000 mg PO BID 12/07/24 [History] ALPRAZolam [Xanax] 1 mg PO TID PRN 12/08/24 [History] Ipratropium-Albuterol Nebulize [Duoneb 0.5 mg-3 mg/3 ml Soln] 3 ml INHALATION Q6HR PRN #90 ml 12/09/24 [Rx] Pantoprazole [Protonix] 40 mg PO AC-BID #30 tab 12/09/24 [Rx] predniSONE See Taper PO DIRECTED #30 tab 12/09/24 [Rx] Follow up Appointment(s)/Referral(s): Brant Liang MD [STAFF PHYSICIAN] - 1 Week Nonstaff,Physician [Primary Care Provider] - 1-2 days Patricia Zepeda MD [STAFF PHYSICIAN] - 1 Week Patient Instructions/Handouts: COPD (Chronic Obstructive Pulmonary Disease) (DC), How to Use a Nebulizer (DC) Activity/Diet/Wound Care/Special Instructions: Please, follow-up with your primary care physician, we have provided you with the name of another primary care practice since we do not have your PCP contact information, you can contact this number if interested. Please, follow-up with bulb sorter. As we discussed, strongly recommend smoking cessation Thank you for allowing us to participate in your care! Discharge Disposition: HOME SELF-CARE
[2024-12-09 11:26] LABS: Glucose,Whole Blood 317 mg/dL (70-110)
--- NOTE | 2024-12-09 14:07 | P.PN ---
Subjective Progress Note Date: 12/09/24 Patient is a 58-year-old male with past medical history significant for diabete s, hypertension, hyperlipidemia, COPD, current ongoing tobacco day smoker, and heavy alcohol use. Presented emergency department late last night with severe shortness of breath, hypoxic on room air with SpO2 in the mid 80s, and tachycardic. Chest CT angiogram was nondiagnostic for pulmonary embolism due to poor bolus contrast timing. No acute parenchymal disease noted. Hyperinflation consistent with COPD. CBC with a WBC count of 10.9, hemoglobin 17.6, platelets 202. CMP unremarkable, electrolytes WDL, creatinine 0.7, glucose 140. LFTs unremarkable. Troponin less than 0.012. NT proBNP less than 20. D-dimer 0.3, and there is no need to repeat chest CTA. Patient was given multiple DuoNeb treatments in the ED and loaded with IV Solu-Medrol. Currently, being evaluated in the emergency department. He is on 2 L/min nasal cannula. Does not appear to be any respiratory distress. States his shortness of breath started yesterday. Endorses coughing, but not significantly worse than normal. No sputum production. No hemoptysis. No sick contacts. No fevers or chills. Denies nausea, vomiting, diarrhea. No recent travel. He does smoke 2 packs/day. He also used to drink heavily, 1/5/day since but stopped approximately 1 month ago. He has history of COPD. Previously, followed with an out-of-town associate product manager. Uses a Trelegy inhaler. No chest pain, heart palpitations, lightheadedness, syncopal events, lower extremity edema. Normal saline infusing at 75 mL/h. Most recent vital signs temperature 98.2 F, heart rate 115 bpm, blood pressure 115/75 mmHg, nontachypneic, SpO2 recorded at 95% on 2 L/min nasal cannula. On 12/08/2024, the patient is being seen for a follow-up. The patient is currently being treated for an acute prescription exacerbation. Feels better c ompared to yesterday. Less bronchospastic and wheezy. Oxygenation is stable and the patient remains on 3 Suboxone by nasal cannula with a pulse ox of 96%. No chest pain. No pleurisy. No hemoptysis. White cell count is 14 with a hemoglobin 16.4 with a platelet count of 172. BUN 11 with a creatinine of 0.7 and sodium is 135. Remains on DuoNeb nebulizers [id number]. Remains on Symbicort and IV Solu-Medrol 60 mg every 6 hours. He is on Lovenox for DVT prophylaxis. Rest of medications were reviewed. No other changes. Clinically improving. On today's evaluation of 12/07/2024, the patient is being seen for a follow-up. Clinically much improved and the patient is oxygenation is also improved and the patient is currently on room air oxygen. The patient is being considered for d ischarge. He has been maintained on Trelegy Ellipta on outpatient basis. He will be given a prednisone burst taper at time of discharge in addition to nebulizer and albuterol updrafts to be used on an outpatient basis. No other new complaints otherwise for now. No new labs are available from today. Clinically stable. Objective - Vital Signs Vital signs: Vital Signs Temp 98.4 F 12/09/24 07:33 Pulse 92 12/09/24 08:18 Resp 18 12/09/24 07:33 BP 135/78 12/09/24 07:33 Pulse Ox 93 L 12/09/24 09:52 FiO2 Intake & Output 12/08/24 12/09/24 12/09/24 18:59 06:59 18:59 Other: Voiding Method Toilet # Voids 4 - Exam GENERAL EXAM: Alert, 58-year-old obese male, sitting at the edge of the bed, comfortable in no apparent distress. Patient is currently on room air oxygen. HEAD: Normocephalic and atraumatic EYES: Normal reaction of pupils, equal size. NOSE: Clear with pink turbinates. THROAT: No erythema or exudates. NECK: No masses, no JVD. CHEST: No chest wall deformity. LUNGS: Equal air entry with no crackles, wheeze, rhonchi or dullness. No conversational dyspnea or accessory muscle use.. CVS: S1 and S2 normal with no audible murmur, regular rhythm. No extra heart sounds. Tachycardic. ABDOMEN: No hepatosplenomegaly, active bowel sounds, no guarding or rigidity. SPINE: No scoliosis or deformity SKIN: No rashes CENTRAL NERVOUS SYSTEM: No focal deficits, tone is normal in all 4 extremities. EXTREMITIES: There is no peripheral edema, clubbing, or cyanosis. Peripheral pulses are intact. - Labs CBC & Chem 7: 12/08/24 05:53 12/08/24 05:53 Labs: Abnormal Lab Results - Last 24 Hours (Table) 12/08/24 12/08/24 12/09/24 Range/Units 16:16 20:26 06:09 POC Glucose (mg/dL) 331 H 258 H 228 H (70-110) mg/dL 12/09/24 Range/Units 11:25 POC Glucose (mg/dL) 317 H (70-110) mg/dL Assessment and Plan Assessment: Acute COPD exacerbation, recovered and shortness of breath is improved Acute hypoxemic respiratory failure, recovered on room air oxygen Sinus tachycardia, improving Hypertension History of hyperlipidemia Diabetes mellitus, on Mounjaro Obesity, with a BMI of 32.1 kg/m Current ongoing tobacco dependence, 2 pack/day smoker for over 40 year History of alcohol abuse, 1/5/day of liquor, stopped drinking approximately 1 month ago Plan: Patient is on room air oxygen Clinically stable and improving Chest CT angiogram nondiagnostic for pulmonary embolism D-dimer 0.3 Will discharge the patient home Continue DuoNebs and the nebulizer has been arranged on outpatient basis Prednisone burst taper Trilogy Ellipta 1 puff a day on outpatient basis Home today to be followed up on outpatient basis by pulmonary.
--- NOTE | 2024-12-12 12:42 | CDI ---
Documentation Clarification Form Date: 12/12/2024 12:33:50 PM From: Zahida Porter Phone: Admit Date: 12/07/2024 02:30:00 AM Patient Name: Jeff Sam Visit Number: [id number] Discharge Date: 12/09/2024 12:17:00 PM ATTENTION: The Clinical Documentation Specialists (CDI) and [facility] Coding Staff appreciate your assistance in clarifying documentation. Please respond to the clarification below the line at the bottom and electronically sign. The CDI & [facility] Coding staff will review the response and follow-up if needed. Please note: Queries are made part of the Legal Health Record. If you have any questions, please contact the author of this message via ITS. Doctor/Provider: Dimple Bolanos Your patient has an abnormal lab value: glucose 331. Please clarify if there is an additional diagnosis and/or clinical significance related to this value. History/Risk Factors: 58yo M, AHRF, HTN, HLD, AECOPD, CHF, 2ppd smoker, Hx alcohol abuse Clinical indicators: Glucose: 12/06 140 12/07 140 12/08 277 12/09 228-331 Home Meds: metforminand Mounjaro Treatment: monitored Is there an additional diagnosis and/or clinical significance related to the above lab result/information? [ x ] Type II DM with hyperglycemia [ x ] Due to steroids [ ] Due to (please specify): [ ] Type II DM with no complications [ ] No additional diagnosis/Not clinically significant [ ] Other, please specify [ ] Unable to determine (Template Last Revised: June 2020) MTDD
== END 2024-12-09 12:17 | disposition home or self-care (01) | DRG 190 ==
LOC: EC 21:01 → 4SSUR 12-07 02:30
PROVIDERS: ADMIT Student in an Organized Health Care Education/Training Program; ATTEND Student in an Organized Health Care Education/Training Program
DX: J44.1 Chronic obstructive pulmonary disease with (acute) exacerbation (principal); J96.01 Acute respiratory failure with hypoxia; E87.1 Hypo-osmolality and hyponatremia; D75.1 Secondary polycythemia; D72.828 Other elevated white blood cell count; E11.65 Type 2 diabetes mellitus with hyperglycemia; E66.9 Obesity, unspecified; F10.11 Alcohol abuse, in remission; I10 Essential (primary) hypertension; E78.5 Hyperlipidemia, unspecified; F17.210 Nicotine dependence, cigarettes, uncomplicated; T38.0X5A Adverse effect of glucocorticoids and synthetic analogues, initial encounter; R00.0 Tachycardia, unspecified; E83.52 Hypercalcemia; R74.01 Elevation of levels of liver transaminase levels; Z68.32 Body mass index [BMI] 32.0-32.9, adult; Z79.51 Long term (current) use of inhaled steroids; Z79.84 Long term (current) use of oral hypoglycemic drugs; Z79.85 Long-term (current) use of injectable non-insulin antidiabetic drugs; Z79.899 Other long term (current) drug therapy
CPT/HCPCS: 36415; 71046; 71275; 80053; 83735; 83880; 84100; 84484; 85025; 85379; 85610; 85730; 93005; 94640; 94760; 96361; 96365; 96366; 96375; 99291